=== PATIENT | male | born 1960 | race Caucasian/White ===

== ENCOUNTER 2016-07-07 07:00 | Inpatient (IN) | payer BC ==
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
[~2016-07-07] VITALS: Ht 180.3 cm; Wt 101.6 kg
[2016-07-07] VITALS (21 sets, daily range): BP systolic 100–167; BP diastolic 53–82; PULSE 69–95; RESP 16–20; Ht 180.3 cm; Wt 101.6 kg
[2016-07-07] MEDS ORDERED: TRANEXAMIC ACID 1,000 MG in SOD CHLORIDE 0.9% 100 ML IVPB ONE (09:00)
[2016-07-07] MEDS ORDERED: oxyCODONE (CR) 10 MG TAB [oxyCONTIN] PO ONE (09:00)
[2016-07-07] MEDS ORDERED: BUPIVACAINE 0.5% (SDV) 30 ML, morphine SULFATE (PF) 8 MG, EPINEPHrine 0.3 MG, KETOROLAC... IRR SCH ×7 (09:00)
[2016-07-07] MEDS ORDERED: SOD CHLORIDE 0.9% 100 ML, TRANEXAMIC ACID 3,000 MG IRR ONE ×2 (09:00)
[2016-07-07] MEDS ORDERED: GABAPENTIN 300 MG CAP PO ONE (09:00)
[2016-07-07] MEDS ORDERED: DEXAMETHASONE 1 MG TAB PO ONE (09:00)
[2016-07-07] MEDS ORDERED: traMADol 50 MG TAB PO ONE (09:00)
[2016-07-07] MEDS ORDERED: CEFAZOLIN 2 GM/50 ML (PMX) 50 ML IVPB ONE (09:00)
[2016-07-07] MEDS ORDERED: AMLO-147 PO (09:48)
[2016-07-07] MEDS ORDERED: LOSA1TAB19 PO (09:48)
[2016-07-07] MEDS ORDERED: morphine SULFATE/PF (10 MG/10 ML) INJ ONE (10:22)
[2016-07-07] MEDS ORDERED: GLYCOPYRROLATE 0.4 MG INJ ONE ×2 (10:22→13:01)
[2016-07-07] MEDS ORDERED: ROCURONIUM 50 MG INJ ONE (10:22)
[2016-07-07] MEDS ORDERED: MIDAZOLAM 1 MG/ML 2 ML INJ ONE (10:22)
[2016-07-07] MEDS ORDERED: LIDOCAINE 100 MG SYRINGE ONE (10:22)
[2016-07-07] MEDS ORDERED: PROPOFOL 100 ML ONE (10:22)
[2016-07-07] MEDS ORDERED: NEOSTIGMINE 3 MG/3 ML SYRINGE ONE ×2 (10:22→13:01)
[2016-07-07] MEDS ORDERED: FENTAnyl 50 MCG/ML VIAL ONE (10:23)
[2016-07-07] MEDS ORDERED: ONDANSETRON 4 MG INJ ONE (10:23)
[2016-07-07] MEDS ORDERED: ETOMIDATE 20 MG INJ ONE (10:23)
[2016-07-07] MEDS ORDERED: DEXAMETHASONE 4 MG/ML 1 ML INJ ONE (10:23)
[2016-07-07] MEDS ORDERED: POLYMYXIN/BACITRACIN 1L IRRIG ONE (11:36)
[2016-07-07] MEDS ORDERED: CA CHLORIDE 10% 10 ML SYRINGE ONE (11:36)
[2016-07-07] MEDS ORDERED: THROMBIN 5000 UNIT VIAL ONE (11:36)
[2016-07-07] MEDS ORDERED: CEFAZOLIN 1 GM INJ ONE (12:21)
[2016-07-07] MEDS ORDERED: POLYMYXIN/BACITRACIN 1L IRRIG IRR ONE (12:36)
[2016-07-07] MEDS ORDERED: LABETALOL HCL 20MG INJ IV PRN (13:00)
[2016-07-07] MEDS ORDERED: hydrALAzine 20 MG INJ IV PRN (13:00)
[2016-07-07] MEDS ORDERED: FENTAnyl 50 MCG/ML VIAL IV PRN ×3 (13:00)
[2016-07-07] MEDS ORDERED: DIPHENHYDRAMINE 50 MG INJ IV PRN ×2 (13:00→15:00)
[2016-07-07] MEDS ORDERED: HYDROmorphONE (0.2 MG/ML) 10ML SYG IV PRN ×3 (13:00)
[2016-07-07] MEDS ORDERED: EPHEDrine SULFATE 50 MG/5 ML SYG IV PRN (13:00)
[2016-07-07] MEDS ORDERED: MEPERIDINE 25 MG INJ IV PRN (13:00)
[2016-07-07] MEDS ORDERED: ONDANSETRON 4 MG INJ IV PRN ×2 (13:00→15:00)
[2016-07-07] MEDS ORDERED: TRIMETHOBENZAMIDE 100 MG/ML VIAL IM PRN (13:00)
[2016-07-07] MEDS ORDERED: MIDAZOLAM 1 MG/ML 2 ML INJ IV PRN (13:00)
--- NOTE | 2016-07-07 14:55 | OPR ---
DATE OF OPERATION: 07/07/2016 SURGEON: Diamond Lyn MD MILL LABORER: Tl Nguyen MD PREOPERATIVE DIAGNOSIS: Left hip primary osteoarthritis. POSTOPERATIVE DIAGNOSIS: Left hip primary osteoarthritis. OPERATION PERFORMED: Left total hip arthroplasty. MILL LABORER SURGEON: Tl Nguyen MD, was asked to be present at my request as a result of significa nt surgical complexity associated with this procedure, including positioning of the extremity, manip ulation and protection of the neurovascular structures. In my opinion, the assistance offered by a surgical attendant is insufficient and Dr. Nguyen should be compensated for his time. PROCEDURE IN DETAIL: Following administration of general endotracheal anesthesia, the patient was p laced in the supine position. The right lower extremity was prepped and draped in usual sterile fas hion. Preoperative x-rays were obtained to confirm the leg lengths. Sterile prep and drape of the right lower extremity was then undertaken. A Majano catheter was also placed in a sterile fashion. prior to intubation. A lateral incision was then made. The tensor muscle was retracted laterally. Anterior capsule expo sed. Capsulectomy was then performed. Severe arthritic changes were noted. The femoral head was t hen osteotomized in the appropriate degree of version and inclination followed by removal of the fem oral head. Very large peripheral osteophytes were removed from around the acetabulum. The acetabul um was reamed up to the 59 mm size and a 60 mm cup was ultimately inserted. This was a DePuy Pinnac le cup with the appropriate liner. Good stable fixation was obtained and addition of fixation screw was used. Attention then directed back to the femur. The femur was reamed up to the 11 mm size. An 11 mm Cor ail device with a valgus neck was then placed in order to increase the soft tissue tension followed by a +5 femoral head. This was a ceramic head. Stable components were obtained. The wound was irr igated. The joint was taken through a full range of motion and radiographs were confirming that the previous rate limb length was reestablished. The joint was thoroughly irrigated, closed in layers. A Prineo and dressing was then applied. Wate rtight closure was obtained. The patient was awakened, transported to recovery in stable condition, having tolerated the procedure well. Estimated blood loss for this procedure was 400 mL. Postoper ative x-rays will be obtained in the recovery room as well as a CBC. Dictated By: DIAMOND ASHLEY/AMRIT Conf#: [id number] DID#: [id number]
[2016-07-07] MEDS ORDERED: ZOLPIDEM 5 MG TAB PO PRN (15:00)
[2016-07-07] MEDS ORDERED: OXYCODONE/ACETAMINOPHEN (5/325) TAB PO PRN ×2 (15:00)
[2016-07-07] MEDS ORDERED: KETOROLAC 15 MG INJ IV PRN (15:00)
[2016-07-07] MEDS ORDERED: BETHANECHOL 25 MG TAB PO PRN (15:00)
[2016-07-07] MEDS ORDERED: morphine 4 MG/ML VIAL IV PRN (15:00)
[2016-07-07] MEDS ORDERED: TRANEXAMIC ACID 1,000 MG in SOD CHLORIDE 0.9% 100 ML IV ONE (15:00)
[2016-07-07] MEDS ORDERED: ACETAMINOPHEN 500 MG TAB PO PRN (15:00)
[2016-07-07] MEDS ORDERED: MAGNESIUM HYDROXIDE 30ML CUP PO PRN (15:00)
[2016-07-07] MEDS ORDERED: morphine 2 MG INJ IV PRN (15:00)
--- NOTE | 2016-07-07 15:47 | RADRPT ---
PROCEDURE: Pelvis x-ray CLINICAL INDICATION: S/p Total hip replacement TECHNIQUE: Single AP view of the pelvis performed. COMPARISON: None FINDINGS: Intact right total hip prosthesis with anatomic alignment of the femoral and acetabular components. Intact fixation screws without evidence of loosening. No fracture or dislocation. Heterotopic vito cification adjacent to the left lateral hip joint superiorly. IMPRESSION: No acute fracture or subluxation. Intact total right hip prosthesis with anatomic alignment. RPTAT:AAJJ Physician Hernan Date Time Electronically viewed and signed by Physician Hernan on 07/07/2016 15:46 ANU/
--- NOTE | 2016-07-07 15:51 | RADRPT ---
PROCEDURE: Intraoperative radiology imaging guidance. CLINICAL INDICATION: Right hip replacement. TECHNIQUE: Intraoperative imaging guidance. 0.9 minutes Fluoroscopy time. 3 intraoperative images obtained. COMPARISON: None. FINDINGS: Intraoperative imaging guidance provided. Please refer to clinical note for a detailed description o f the procedure. IMPRESSION: Intraoperative imaging guidance. RPTAT:AAJJ Suman Serra Physician Date Time Electronically viewed and signed by Physician Hernan on 07/07/2016 15:51 ANU/
[2016-07-07 15:54] LABS: ADD UMIC YES; URINE BILIRUBIN (Dip) NEGATIVE (NEGATIVE); URINE BLOOD (Dip) 3+ (NEGATIVE); URINE COLOR LT. YELLOW (YELLOW); URINE GLUCOSE (Dip) NEGATIVE (NEGATIVE); URINE KETONES (Dip) NEGATIVE (NEGATIVE); URINE LEUKOCYTE ESTERASE (Dip) NEGATIVE (NEGATIVE); URINE NITRITE (Dip) NEGATIVE (NEGATIVE); URINE TOTAL PROTEIN (Dip) NEGATIVE (NEGATIVE); URINE UROBILINOGEN (Dip) 0.2 E.U./dL (0.1-1.0)
[2016-07-07 16:16] LABS: BACTERIA,URINE MODERATE; TRANSITIONAL EPI CELLS,URINE MODERATE; URINE RBCS >200 /HPF (0)
[2016-07-07] MEDS ORDERED: CEFAZOLIN 1 GM/50 ML (PMX) 50 ML IVPB ONE (16:35)
[2016-07-07] MEDS: CEFAZOLIN 1 GM/50 ML (PMX) 50 ML IVPB SCH (16:36)
[2016-07-07 16:59] LABS: HEMATOCRIT 42.6 % (42.0-52.0); HEMOGLOBIN 14.5 g/dl (14.0-18.0); MEAN CORPUSCULAR HEMOGLOBIN 30.6 pg (29.0-33.0); MEAN CORPUSCULAR VOLUME 90.1 fl (82.0-101.0); MEAN PLATELET VOLUME 9.5 fl (7.4-10.4); PLATELET COUNT 138 10^3/UL (140-440); RED BLOOD COUNT 4.73 10^6/ul (4.70-6.10); RED CELL DISTRIBUTION WIDTH 12.1 % (11.5-14.5); UNCORRECTED WBC 17.1 10^3/ul (4.8-10.8); WHITE BLOOD COUNT 17.1 10^3/ul (4.8-10.8)
[2016-07-07 17:02] LABS: CONDITION 1; LH ANALYZER COMMENTS 1
[2016-07-07] MEDS: LACTATED RINGER'S 1,000 ML IV SCH ×2 (17:51→23:19)
[2016-07-07] MEDS: DEXAMETHASONE 2 MG TAB PO SCH ×2 (17:51→23:19)
[2016-07-07 18:33] LABS: LYMPHOCYTES # 0.3 10^3/ul (0.8-2.9); MONOCYTE # 0.5 10^3/ul (0.3-0.9); NEUTROPHIL # 15.2 10^3/ul (1.6-7.5)
--- NOTE | 2016-07-07 19:08 | CONS ---
DATE OF ADMISSION: 07/07/2016 DATE OF CONSULTATION: TYPE OF CONSULTATION: Postoperative consult followup. HISTORY OF PRESENT ILLNESS: Patient had surgery with Dr. Delfino Lyn, total hip replacement on t he right side. Currently he is on the floor, postoperatively alert, eating and not complaining of an ything at this particular point in time. PHYSICAL EXAMINATION: VITAL SIGNS: The last set revealed temperature 98.9, pulse 85, respirations 18, blood pressure 113/5 5 and O2 sat described as 88%, slightly better at this point in time. HEENT: Unremarkable. LUNGS: Clear. HEART: Exam reveals a regular rhythm. ABDOMEN: Unremarkable. IMPRESSION: 1. Status post total hip replacement on the right. 2. Hypertension by history. 3. Stable health. DISCUSSION: Plan is to continue patient on his preoperative medicines; however, we will start on a lower dose and start tomorrow. CONDITION: At this time postoperatively is stable. Thank you again, Dr. Lyn, for allowing us to participate in the care of this patient. Dictated By: TESSIE CABRERA/AMRIT Conf#: [id number] DID#: [id number]
[2016-07-07] MEDS: SENNA/DOCUSATE NA (8.6MG/50MG) TAB PO SCH (20:11)
[2016-07-07] MEDS ORDERED: GABAPENTIN 300 MG CAP PO SCH (21:00)
[2016-07-08 01:06] VITALS: BP 130/68; RESP 20
[2016-07-08] MEDS: CEFAZOLIN 1 GM/50 ML (PMX) 50 ML IVPB SCH (04:00)
--- NOTE | 2016-07-08 04:50 | PDOCDIS ---
Discharge Instructions DIAGNOSIS Discharge Diagnosis: Hip arthritis CONDITION Patient Condition: Good HOME CARE INSTRUCTIONS: Diet Instructions: Regular ACTIVITY: Activity Restrictions: Slowly Increase Activity Keep Limb Elevated Bathing Restrictions: Shower FOLLOW UP/APPOINTMENTS Appointments 2 weeks SCHOOL/WORK RELEASE May return to School/Work with: With Restrictions School/Work Release Comment: No deep flexion and extension for six weeks DIAMOND HOOKER MD Jul 08, 2016 04:50
[2016-07-08] MEDS: DEXAMETHASONE 2 MG TAB PO SCH (05:10)
[2016-07-08 05:15] VITALS: BP 113/57; PULSE 71; RESP 18
[2016-07-08 05:42] LABS: POTASSIUM 4.4 mmol/L (3.5-5.1)
[2016-07-08 05:44] LABS: CREATININE 1.02 mg/dl (0.61-1.24)
[2016-07-08 05:45] LABS: CALCIUM 8.5 mg/dl (8.4-10.2)
[2016-07-08 05:48] LABS: HEMATOCRIT 36.9 % (42.0-52.0); HEMOGLOBIN 12.5 g/dl (14.0-18.0); LYMPHOCYTES # 0.5 10^3/ul (0.8-2.9); LYMPHOCYTES % 3.5 % (15.0-51.0); MEAN CORPUSCULAR HEMOGLOBIN 30.8 pg (29.0-33.0); MEAN CORPUSCULAR HGB CONC 33.9 g/dl (32.0-37.0); MEAN CORPUSCULAR VOLUME 90.7 fl (82.0-101.0); MEAN PLATELET VOLUME 9.8 fl (7.4-10.4); MONOCYTE # 0.6 10^3/ul (0.3-0.9); MONOCYTES % 3.9 % (0.0-11.0); NEUTROPHIL # 14.2 10^3/ul (1.6-7.5); NEUTROPHILS % 92.6 % (39.0-77.0); PLATELET COUNT 127 10^3/UL (140-440); RED BLOOD COUNT 4.06 10^6/ul (4.70-6.10); RED CELL DISTRIBUTION WIDTH 12.4 % (11.5-14.5); UNCORRECTED WBC 15.3 10^3/ul (4.8-10.8); WHITE BLOOD COUNT 15.3 10^3/ul (4.8-10.8)
[2016-07-08 05:50] LABS: CONDITION 1; LH ANALYZER COMMENTS 1
--- NOTE | 2016-07-08 06:40 | PN ---
Date/Time of Note Date/Time of Note DATE: 07/08/16 TIME: 06:38 24 hour Interval Summary Very comfortable overnight with no pain. Clinical examination of his wound reveals that it is clean and dry. He is neurologically intact in the right lower extremity. There are no signs of DVT. Impression: Status post left total hip replacement Plan: #1 he will begin physical therapy this morning and be discharged once he is independently ambulatory #2 his hemoglobin and hematocrit appeared stable with hemoglobin of 12.5. #3 he will take discharged this morning and follow-up in 2 weeks in the office. Physical Exam Vital Signs Date Time Temp Pulse Resp B/P Pulse Ox O2 Delivery O2 Flow Rate FiO2 07/08/16 05:15 97.5 71 18 113/57 95 Nasal Cannula 3.0 Intake and Output 07/07/16 07/07/16 07/08/16 15:00 23:00 07:00 Intake Total 2400 ml 520 ml 1900 ml Output Total 500 ml 200 ml 900 ml Balance 1900 ml 320 ml 1000 ml VTE Prophylaxis VTE Prophylaxis Intervention: anti-embolic stocking, other VTE Confirmed-Overlap Tx Rcvd Pt Rcvd Overlap Therapy: Yes Lines/Catheters IV Catheter Type: Saline Lock Majano in Place: No Results Result Diagram: 07/08/16 0440 07/08/16 0440 Results 24hrs Laboratory Tests Test 07/07/16 15:17 07/07/16 16:50 07/08/16 04:40 Urine Bacteria MODERATE Urine Bilirubin NEGATIVE Urine Clarity SLIGHTLY CLOUDY Urine Color LT. YELLOW Urine Glucose NEGATIVE Urine Hemoglobin 3+ H Urine Ketones NEGATIVE Urine Leukocyte Esterase NEGATIVE Urine Microscopic RBC >200 Urine Microscopic WBC 0-2 Urine Nitrite NEGATIVE Urine Specific Arnett 1.025 Urine Total Protein NEGATIVE Urine Transitional Epithelial Cells MODERATE Urine Urobilinogen 0.2 E.U./dL Urine pH 6.0 Basophils # 0.0 Basophils % 0.0 Eosinophils # 0.0 Eosinophils % 0.0 Hematocrit 42.6 36.9 L Hemoglobin 14.5 12.5 L Lymphocytes # 0.3 L 0.5 L Lymphocytes % 2.0 L 3.5 L Mean Corpuscular Hemoglobin 30.6 30.8 Mean Corpuscular Hemoglobin Concent 34.0 33.9 Mean Corpuscular Volume 90.1 90.7 Mean Platelet Volume 9.5 9.8 Monocytes # 0.5 0.6 Monocytes % 3.0 3.9 Neutrophils # 15.2 H 14.2 H Neutrophils % 89.0 H 92.6 H Nucleated Red Blood Cells # 0.0 Nucleated Red Blood Cells % 0.0 0.0 Platelet Count 138 L 127 L Red Blood Count 4.73 4.06 L Red Cell Distribution Width 12.1 12.4 White Blood Count 17.1 H 15.3 H Anion Gap 14 Blood Urea Nitrogen 25 H Calcium Level 8.5 Carbon Dioxide Level 26 Chloride Level 102 Creatinine 1.02 Glucose Level 149 Potassium Level 4.4 Sodium Level 138 Assessment/Plan Chief Complaint/Hosp Course Status post total hip replacement Problems: Medications Medications Home Meds Reported Medications Losartan-Hydrochlorothiazide (Losartan-HCTZ) 50-12.5 Mg Tab, 1 TAB PO DAILY, TAB 07/07/16 Amlodipine Besylate* (Amlodipine Besylate*) 10 Mg Tablet, 10 MG PO DAILY, #30 TAB 07/07/16 DIAMOND HOOKER MD Jul 08, 2016 06:40
--- NOTE | 2016-07-08 06:42 | DS ---
Date/Time of Note Date/Time of Note DATE: 07/08/16 TIME: 06:40 Discharge Summary Admission/Discharge Info Admit Date/Time Jul 07, 2016 at 08:33 Discharge Date/Time July 07, 2016 following clearance by physical therapy. Final Diagnosis Severe arthritis right hip (primary) Patient Condition: Good Consults None Procedures Right total hip replacement Hx of Present Illness Pain and severe stiffness right hip Hospital Course Surgery followed physical therapy. Discharged home after that. Home Meds Reported Medications Losartan-Hydrochlorothiazide (Losartan-HCTZ) 50-12.5 Mg Tab, 1 TAB PO DAILY, TAB 07/07/16 Amlodipine Besylate* (Amlodipine Besylate*) 10 Mg Tablet, 10 MG PO DAILY, #30 TAB 07/07/16 Follow-up Plan 2 weeks Pending Labs Laboratory Tests Test 07/07/16 15:17 07/07/16 16:50 07/08/16 04:40 Urine Bacteria MODERATE Urine Bilirubin NEGATIVE (NEGATIVE) Urine Clarity SLIGHTLY CLOUDY (CLEAR) Urine Color LT. YELLOW (YELLOW) Urine Glucose NEGATIVE% (NEGATIVE) Urine Hemoglobin 3+ (NEGATIVE) Urine Ketones NEGATIVE (NEGATIVE) Urine Leukocyte Esterase NEGATIVE (NEGATIVE) Urine Microscopic RBC >200/HPF (0) Urine Microscopic WBC 0-2/HPF (0) Urine Nitrite NEGATIVE (NEGATIVE) Urine Specific Brooks 1.025 (1.003-1.030) Urine Total Protein NEGATIVE (NEGATIVE) Urine Transitional Epithelial Cells MODERATE Urine Urobilinogen 0.2 E.U./dL (0.1-1.0) Urine pH 6.0 (5.0-9.0) Basophils # 10^3/ul (0.0-0.1) 0.010^3/ul (0.0-0.1) Basophils % % (0.0-2.0) 0.0% (0.0-2.0) Eosinophils # 10^3/ul (0.0-0.5) 0.010^3/ul (0.0-0.5) Eosinophils % % (0.0-7.0) 0.0% (0.0-7.0) Hematocrit 42.6% (42.0-52.0) 36.9% (42.0-52.0) Hemoglobin 14.5g/dl (14.0-18.0) 12.5g/dl (14.0-18.0) Lymphocytes # 0.310^3/ul (0.8-2.9) 0.510^3/ul (0.8-2.9) Lymphocytes % 2.0% (15.0-51.0) 3.5% (15.0-51.0) Mean Corpuscular Hemoglobin 30.6pg (29.0-33.0) 30.8pg (29.0-33.0) Mean Corpuscular Hemoglobin Concent 34.0g/dl (32.0-37.0) 33.9g/dl (32.0-37.0) Mean Corpuscular Volume 90.1fl (82.0-101.0) 90.7fl (82.0-101.0) Mean Platelet Volume 9.5fl (7.4-10.4) 9.8fl (7.4-10.4) Monocytes # 0.510^3/ul (0.3-0.9) 0.610^3/ul (0.3-0.9) Monocytes % 3.0% (0.0-11.0) 3.9% (0.0-11.0) Neutrophils # 15.210^3/ul (1.6-7.5) 14.210^3/ul (1.6-7.5) Neutrophils % 89.0% (39.0-77.0) 92.6% (39.0-77.0) Nucleated Red Blood Cells # 10^3/ul (0.0-0.0) 0.010^3/ul (0.0-0.0) Nucleated Red Blood Cells % 0.0/100WBC (0.0-0.0) 0.0/100WBC (0.0-0.0) Platelet Count 42825^3/UL (140-440) 57660^3/UL (140-440) Red Blood Count 4.7310^6/ul (4.70-6.10) 4.0610^6/ul (4.70-6.10) Red Cell Distribution Width 12.1% (11.5-14.5) 12.4% (11.5-14.5) White Blood Count 17.110^3/ul (4.8-10.8) 15.310^3/ul (4.8-10.8) Anion Gap 14 (8-16) Blood Urea Nitrogen 25mg/dl (7-20) Calcium Level 8.5mg/dl (8.4-10.2) Carbon Dioxide Level 26mmol/L (21-31) Chloride Level 102mmol/L (97-110) Creatinine 1.02mg/dl (0.61-1.24) Glucose Level 149mg/dl (70-220) Potassium Level 4.4mmol/L (3.5-5.1) Sodium Level 138mmol/L (135-144) DIAMOND HOOKER MD Jul 08, 2016 06:41
[2016-07-08] MEDS ORDERED: ASP81 PO (06:43)
[2016-07-08 08:08] VITALS: BP 119/56; RESP 18
[2016-07-08] MEDS: SENNA/DOCUSATE NA (8.6MG/50MG) TAB PO SCH (08:39)
--- NOTE | 2016-07-08 08:52 | CONS ---
DATE OF ADMISSION: 07/07/2016 DATE OF CONSULTATION: POSTOPERATIVE CONSULTATION FOLLOWUP SUBJECTIVE: The patient had a night. No specific complaints. Will be ambulated today, and if he d oes well, may go home today if cleared by PT. PHYSICAL EXAMINATION: VITAL SIGNS: Reveal the following, blood pressure 113/57, pulse 71, respirations 18, temperature 97 .5. The patient's O2 nasal cannula is 95%. HEENT: Unremarkable. LUNGS: Clear. HEART: Reveals a regular rhythm. IMPRESSION: 1. Status post total hip replacement on the right side. 2. Hypertension. 3. Stable health. DISCUSSION: Review of laboratory and other data reveals the following: The patient's CBC reveals a hemoglobin of 12.5, hematocrit of 36, white count minimally elevated at 15.3, improved from yesterd ay. Chemistries revealed a normal Chem-7. PLAN: Per Dr. Lyn in terms of his ambulation and potential discharge. The patient has been giv en instructions in terms of his preoperative medicines when he does go home. Thank you again, Dr. Lyn, for allowing us to participate in care of this patient. Dictated By: TESSIE AWAN MD SS/AMRIT Conf#: [id number] DID#: [id number]
[2016-07-08] MEDS ORDERED: AMLODIPINE 5 MG TAB PO SCH (09:00)
[2016-07-08] MEDS ORDERED: HYDROCHLOROTHIAZIDE 12.5 MG CAP PO SCH (09:00)
[2016-07-08] MEDS ORDERED: ASPIRIN 81 MG TAB PO SCH (09:00)
[2016-07-08] MEDS ORDERED: LOSARTAN 50 MG TAB PO SCH (09:00)
[2016-07-08] MEDS ORDERED: AMLODIPINE 10 MG TAB PO SCH (09:00)
== END 2016-07-08 10:48 | disposition home or self-care (01) | DRG 470 ==
LOC: REC 08:33 → MS1 17:05
PROVIDERS: ADMIT Orthopaedic Surgery; ATTEND Orthopaedic Surgery
PROC: 0SRB04A Replacement of Left Hip Joint with Ceramic on Polyethylene Synthetic Substitute, Uncemented, Open Approach (ICD-10-PCS; principal; 2016-07-07 11:00)
DX: M16.12 Unilateral primary osteoarthritis, left hip (principal); I10 Essential (primary) hypertension
CPT/HCPCS: 72170; 73530; 80048; 81001; 81003; 85025; 86850; 86870; 86900; 86901; 86999; 87086; 97162; C1713; C1776; J0171; J0690; J0735; J1100; J1885; J2001; J2250; J2274; J2405; J2710; J3010; J3370; J7120